=== PATIENT | female | born 1995 ===

== ENCOUNTER 2022-10-08 08:00 | Day surgery (SDC) | payer BC, SELFPAY ==
[2022-10-08] VITALS (7 sets, daily range): BP systolic 130–171; BP diastolic 71–99; PULSE 64–85; RESP 14–18; TEMP 36.6–36.9; O2SAT 17–100; BMI 25.4
--- NOTE | 2022-10-08 09:56 | HPE_ITS ---
Assessment and Plan Assessment and plan (1) Fracture of tibial shaft, right, closed: Status: Acute Assessment and plan: Dariela is a 27-year-old female who is active and was skiing earlier today when she suffered a rotational injury which resulted in a fracture of the right tibia. Given the fracture I recommended operative fixation with an intramedullary nail. I reviewed the technical details of this case. I discussed the risk and benefits. I discussed the potential risk to include bleeding, infection, pain, stiffness, malrotation, malunion, nonunion, hardware prominence, hardware failure, blood clot, need for repeat procedures, knee pain or stiffness. Despite these risk, she elects to proceed. Our plan will be to discharge later today after her procedure. She will be partial weightbearing of the right lower extremity with crutches and a splint. Preoperative cefazolin as well as tranexamic acid will be administered prior to incision. Continue n.p.o. status. LR at 80 cc/h. Morphine IV as needed for pain as well as ketorolac and acetaminophen. History of Present Illness History of Present Illness Chief Complaint: Right Tibia Fracture Narrative: Dariela is a 27-year-old who was skiing yesterday at [place]. The snow was quite soft and her ski got caught in some of the slushy snow causing a rotational injury about the right leg. She felt an immediate pop and went down the ground. She was unable to ambulate. She was taken to the [facility] and diagnosed with a spiral?oblique fracture of the distal tibial diaphysis of the right leg. Orthopedics was consulted at [facility] but there is no beds available. Other tertiary referral centers were called and there is no availability at any location. I was called to help assist in her care. Coordination between staffing and rooms and beds was made such that we were able to take her in the morning for surgery, plan as an outpatient. When she arrived from [facility] she reported some increasing pain about the right leg from the transfer. She denies numbness or tingling. She denies any head trauma. She denies any knee, hip, or thigh pain. She did have some nausea with IV hydromorphone but did well with IV morphine. She also had oral hydromorphone which seem to work well. She denies any sick contacts. She has no shortness of breath or cough. She has has no COVID-19 symptoms nor recent illnesses. 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 Review of Systems All systems reviewed & are unremarkable except as noted in HPI and below PFSH All Active Problems (Updated 10/08/22 @ 10:36 by Quique Orellana MD) Fracture of tibial shaft, right, closed (Acute) Medical History (Updated 10/08/22 @ 10:36 by Quique Orellana MD) ADHD Anxiety Hypertension Social History Smoking/Tobacco Use Status: Current every day Tobacco Type: e-cigarettes Smoking risk assessment performed?: Yes Alcohol Intake: current Alcohol Intake frequency: a few times a month Drug use: Never Do you feel safe at home: Yes Do you feel safe in your relationship?: Yes Meds Allergies and Home Medications Allergies Allergy/AdvReac Type Severity Reaction Status Date / Time azithromycin Allergy Mild Hives Unverified 10/08/22 09:48 Home Medications Medication Instructions Recorded Confirmed Type etonogestrel 0.12 mg-ethinyl vag ring vaginal 10/08/22 History estradiol 0.015 mg/24 hr vaginal ring (NuvaRing) fluoxetine 20 mg capsule (Prozac) 20 mg PO DAILY 10/08/22 10/08/22 History methylphenidate HCl 36 mg 36 mg PO DAILY 10/08/22 10/08/22 History tablet,extended release 24 hr (Concerta) metoprolol tartrate 50 mg tablet 50 mg PO DAILY 10/08/22 10/08/22 History Exam Const General: cooperative, healthy appearing, comfortable and no acute distress Resp Auscultation: clear to auscultation bilaterally Cardio Rate: regular rate Rhythm: regular rhythm Extrem Other: Right lower extremity is in a long-leg splint with side stirrups. Gross skin examination was challenging but did not show any active defects. She was able to actively extend and flex the big toe without significant limitation. Passive range of motion of the toe did not seem to increase pain. Sensation intact light touch over the deep and superficial peroneal nerve and tibial nerve. Capillary refill less than 2 seconds with a palpable DP pulse. No pain to palpation about the proximal tibia or the knee joint. No pain along the thigh. Results Imaging Imaging Studies: AP and lateral of the tibia and fibula was reviewed on the phone. Images were not pushed over as of this time writing the note. Shows a long oblique, spiral fracture of the distal third tibial diaphysis. There is some shortening and some mild malrotation. No extension of the fracture into the ankle joint. No extension proximally.
--- NOTE | 2022-10-08 10:15 | DI.RAD_ITS ---
Exam(s) XR TIB/FIB RT EXAM: XR TIB/FIB RT CLINICAL HISTORY: Right Tibia Fracture. TECHNIQUE: 2D and realtime digital imaging was performed. COMPARISON: No exams were available for comparison FINDINGS: Fluoroscopy was provided for Dr. Orellana in the OR. Hard copy images show placement of an intramedu llary trisha through the tibia for fracture fixation. The alignment is satisfactory. Please see procedure note for details. Fluoro time: 2 minutes 53 secondsseconds RADIATION DOSE DELIVERED: Ka,r=4.4 1 mGy
[2022-10-08] MEDS: MORPHine 2 MG/ML SYR IVP ×2 (10:21→14:07)
[2022-10-08] MEDS: Normal Saline Flush 10 ML SYR IVP (10:21)
[2022-10-08] MEDS: Ondansetron 4 MG/2 ML VIAL IVP (10:22)
--- NOTE | 2022-10-08 10:28 | W.ANESPRE ---
General Info Date of Service Date Performed: 10/08/22 Height: 5 ft 6 in Weight: 71.668 kg Body Mass Index (BMI): 25.4 Surgical Procedure: Operation Date: 10/08/22 11:30 Proposed Procedure Side Surgeon p Tibial Rodding/IM Nailing Right Quique Orellana MD Meds Allergies and Home Medications Allergies Allergy/AdvReac Type Severity Reaction Status Date / Time azithromycin Allergy Mild Hives Unverified 10/08/22 09:48 Home Medication Medication Instructions Recorded acetaminophen 500 mg tablet 1,000 mg PO Q8H PRN pain #90 tabs 10/08/22 aspirin 81 mg tablet,delayed 81 mg PO BID #28 tabs 10/08/22 release celecoxib 200 mg capsule 200 mg PO BID PRN pain #60 caps 10/08/22 etonogestrel 0.12 mg-ethinyl vag ring vaginal 10/08/22 estradiol 0.015 mg/24 hr vaginal ring (NuvaRing) fluoxetine 20 mg capsule (Prozac) 20 mg PO DAILY 10/08/22 hydromorphone 2 mg tablet 2 mg PO Q4H PRN pain #12 tabs 10/08/22 methylphenidate HCl 36 mg 36 mg PO DAILY 10/08/22 tablet,extended release 24 hr (Concerta) metoprolol tartrate 50 mg tablet 50 mg PO DAILY 10/08/22 ondansetron 4 mg disintegrating 4 mg PO Q8H PRN #10 tabs 10/08/22 tablet Current Visit Medications: Current Medications Generic Name Dose Route Start Last Admin Trade Name Freq PRN Reason Stop Dose Admin Hydromorphone HCl 0.5 mg 10/08/22 09:46 Hydromorphone 2 Mg/Ml Syr IVP Q2H PRN PRN Sodium Chloride 500 mls @ 0 mls/hr 10/08/22 09:46 Saline 500ml Bag IV PRN PRN As Directed Cefazolin Sodium/Dextrose 2 gm in 50 mls @ 100 mls/hr 10/08/22 11:00 Ancef Duplex IVPB 10/08/22 16:00 PREOP REECE Tranexamic Acid 1,000 mg/ 60 mls @ 360 mls/hr 10/08/22 11:00 Sodium Chloride IVPB PREOP REECE IV Miscellaneous Supplies 1 each 10/08/22 10:00 Iv Access IV DIRECTED REECE Ketorolac Tromethamine 15 mg 10/08/22 09:46 Ketorolac 15 Mg/Ml Vial IM 10/13/22 09:45 Q6H PRN PRN Morphine Sulfate 2 mg 10/08/22 09:57 10/08/22 10:21 Morphine 2 Mg/Ml Syr IVP 2 mg Q1H PRN PRN Administration Ondansetron HCl 4 mg 10/08/22 09:57 10/08/22 10:22 Ondansetron 4 Mg/2 Ml Vial IVP 4 mg Q6H PRN PRN Administration Oxycodone HCl 0 mg 10/08/22 09:46 Oxycodone 5 Mg Tab PO Q3H PRN PRN Pain Sodium Chloride 0 ml 10/08/22 09:46 10/08/22 10:21 Normal Saline Flush 10 Ml Syr IVP 20 ml PRN PRN Administration PFSH Medical History Medical History ADHD Anxiety Hypertension Tobacco Smoking/Tobacco Use Status: Current every day Tobacco Type: e-cigarettes Alcohol Alcohol Intake: current Alcohol intake frequency: a few times a month Substance Use Substance use: Never Vital Signs and Lab Results Vital Signs Most Recent Vital Signs in EMR: Most Recent Vital Signs Temp Pulse Resp BP Pulse Ox 36.7 C 72 17 171/99 H 17 L 10/08/22 10:12 10/08/22 10:12 10/08/22 10:12 10/08/22 10:12 10/08/22 10:12 Lab Results Blood Type / Crossmatch: No Data to Display Complete Blood Count: No Data to Display Complete Metabolic Panel: No Data to Display Liver Function Panel: No Data to Display Coagulation Panel: No Data to Display Cardiac Panel: No Data to Display Arterial Blood Gas: No Data to Display Venous Blood Gas: No Data to Display Pancreas Panel: No Data to Display Thyroid Panel: No Data to Display Infectious Disease: No Data to Display Blood Cultures: No Data to Display Toxicology Panel: No Data to Display Panel: Urine HCG, Qualitative Negative 10/08/22 10:50 Anesthesia Assessment and Plan Anesthesia History Personal History: No History of Anesthesia Complications Family History: No Family History of Anesthesia Complications Exercise Tolerance Exercise Tolerance: Metabolic Equivalents>4 Pertinent Negatives Pertinent Negatives: No Symptoms of GERD, No Major Cardiovascular Symptoms or Complaints, No Major Pulmonary Symptoms or Complaints (Chronic post nasal gtt) and No History of CVA/TIA Cardiac & Pulmonary Exam Cardiac Exam: Normal S1/S2 Heart Sounds Pulmonary Exam: Clear Bilateral Breath Sounds Implantable Cardiac Device Does patient have a Pacemaker or an ICD?: No Airway Exam Known Difficult Airway: No Mallampati Class: 2 Mouth Opening: Normal (> 3cm) Thyromental Distance: Less than 3 cm Neck Range of Motion: Full ROM Neck Circumference: Normal Teeth Condition: Normal Dentition ASA Classification ASA Score: ASA 2 Emergency Case?: Yes NPO Status NPO Status: NPO Clears >2 hours, Solids >8 hours Status Status: Negative HCG Anesthesia Plan Resuscitation Status: Full Code Anesthesia Technique: General Anesthesia Airway Planned: Endotracheal Tube Monitors Used: Standard Monitors
--- NOTE | 2022-10-08 10:37 | W.PM.DS.N ---
Date of service: 10/08/22 Time of Service: 14:42 DS: Diagnosis Discharge Diagnosis (1) Fracture of tibial shaft, right, closed: Status: Acute Discharge Plan Disposition Patient Disposition: Home Condition: Improving Discharge Details Reason For Visit: Right Tibia Shaft Fracture Admit Date/Time: 10/08/22 09:47 Admit Provider: Quique Orellana Attending Provider: Quique Orellana Primary Care Provider: Liam Fernandez Hospital Course Hospital Course: Dariela was transferred directly from [facility] emergency department for surgical fixation of her right tibial shaft fracture. She was greeted in the medical surgical floor where initial processing was performed. History and physical was performed and consent was obtained. She was taken to the operating room for surgical fixation of a right tibial shaft fracture with an intramedullary nail. She tolerated the procedure well and was taken back to the floor for recovery. She had a demonstration of crutch use and had adequate pain control with oral pain medications. She was voiding spontaneously. She was deemed safe for discharge to home. Home Meds and New Rx's Prescriptions: New celecoxib 200 mg capsule 200 mg PO BID PRN (Reason: pain) Qty: 60 1RF aspirin 81 mg tablet,delayed release (DR/EC) 81 mg PO BID Qty: 28 0RF acetaminophen 500 mg tablet 1,000 mg PO Q8H PRN (Reason: pain) Qty: 90 3RF hydromorphone 2 mg tablet 2 mg PO Q4H PRN (Reason: pain) Qty: 12 0RF ondansetron 4 mg tablet,disintegrating 4 mg PO Q8H PRNQty: 10 0RF Continued metoprolol tartrate 50 mg Tablet 50 mg PO DAILY fluoxetine [Prozac] 20 mg Capsule 20 mg PO DAILY methylphenidate HCl [Concerta] 36 mg Tablet Extended Release 24hr 36 mg PO DAILY etonogestrel-ethinyl estradiol [NuvaRing] 0.12-0.015 mg/24 hr Ring VAGINAL Discharge Instructions Additional Instructions: Tibial Nail Discharge Instructions Activity: For the first few days or week the most important thing to do is to keep the right leg elevated. Try to keep the right foot slightly higher than the knee and the knee slightly higher than the hip. You will have a splint on the right leg for comfort and stability for the first 2 weeks. You may partially weight-bear with crutches. Your right leg, through the splint, may rest on the ground. You may place some weight on the right leg. It is stable for weightbearing. You may wiggle your toes as tolerated. You should work on gentle range of motion of the right knee understand the right knee may be sore with flexion. Dressing: You will have a splint on the lower portion of the leg covered by an Mark wrap as well as an Mark wrap around the knee. These dressings may stay in place until your follow-up in 2 weeks. However, you may choose to remove the Mark wrap from around the knee after 3 days. There will be a dressing underneath this which should stay in place until your follow-up. The splint on the lower portion of the leg should stay in place until your follow-up. If you have any issues with the splint itself, you may rewrap the Mark wrap or call Dr. Orellana or his office to discuss best next steps. Medications: - You should take Tylenol and anti-inflammatory Celebrex as your primary pain control medications. If the Celebrex is too expensive or not covered, please call for another alternative (Advil/Ibuprofen 600mg Q8hr or Naproxen/Aleve [2 Aleve (440mg) twice a day]). Celebrex was chosen due to its anti-inflammatory coverage and less risk of GI upset. - You have been prescribed a stronger pain medication Hydromorphone for breakthrough pain, take as needed as prescribed. - You have also been prescribed a an anti-nausea medication - You will be taking Aspirin 81mg twice a day for DVT prevention for the first 2 weeks unless instructed otherwise. - If you have constipation you should take Colace or Miralax (both [id number]). It takes most people 3-4 days to have a bowel movement. Follow-up: 2 weeks If you have any acute concerns or questions, please do not hesitate to contact the office at [phone]. You may contact Dr. Orellana with any questions after hours through the hospital at [phone] or on his cell phone at [phone]. Stand Alone Forms: Anes.Sugammadex Interaction, Nursing Discharge Form Referrals: Quique Orellana MD [ [facility] STAFF PHYSICIAN] - (Please call Monday to make an Appointment [phone]) Activity:: Partial Weight Bearing RL Equipment/Supplies:: Crutches Diet:: As Tolerated Discharge Orders Discharge Orders: Discharge Order (Routine); Ordered 10/08/22 Ordered By: Quique Orellana DS: Summary Time Spent with Patient providing and/or coordinating discharge services: Less than 30 minutes Status at Discharge Functional status at discharge: uses cane/walker Overall status at discharge: patient is progressing back to baseline Mental Status: mental status grossly normal Speech and Movement: speech and movement normal Mood: congruent mood Affect: normal affect Exam Psych Mental Status: mental status grossly normal Speech and Movement: speech and movement normal Mood: congruent mood Affect: normal affect DS: Data Vitals/I&O Vitals and I&O: Vital Signs Temperature 36.7 C 10/08/22 10:12 Pulse 72 10/08/22 10:12 Pulse Rhythm Regular 10/08/22 10:12 Respiratory Rate 17 10/08/22 10:12 Respiratory Effort Non-Labored 10/08/22 10:12 Respiratory Depth Normal 10/08/22 10:12 Respiratory Pattern Normal 10/08/22 10:12 Blood Pressure 171/99 H 10/08/22 10:12 Pulse Oximetry 17 L 10/08/22 10:12 Oxygen Delivery Method Room Air 10/08/22 10:12 Oxygen Flow Rate 0 10/08/22 10:12 Pain Level 7 10/08/22 10:21 Intake & Output 10/07/22 10/07/22 10/08/22 11:59 23:59 11:59 Weight 71.668 kg PFSH All Active Problems Fracture of tibial shaft, right, closed (Acute) Medical History ADHD Anxiety Hypertension Social History Smoking/Tobacco Use Status: Current every day Tobacco Type: e-cigarettes Smoking risk assessment performed?: Yes Alcohol Intake: current Alcohol Intake frequency: a few times a month Drug use: Never Do you feel safe at home: Yes Do you feel safe in your relationship?: Yes
[2022-10-08 11:11] LABS: HCG Qual (Urine) Negative
[2022-10-08] MEDS: Lactated Ringers 1,000 ML 30 ML IV (11:11)
--- NOTE | 2022-10-08 11:19 | PT.INIE ---
PT Notes Visit Reasons: Right Tibia Shaft Fracture Inpatient Physical Therapy Evaluation Date: 10/08/22 Referring Doctor: Dr. Orellana PT Orders: PT CONSULT: right tibial shaft fx- gait training Precautions: standard, NWB RLE until surgery, then WBAT post-op Patient Profile/Admitting Diagnosis: Patient seen prior to surgical repair of right tibial shaft fx. PT consult requested for pre-op gait training, with IMN planned for later this morning. PMHX: HTN Social History/Home Situation: Patient works as a pharmacist. Lives in a multi-level home with her luke, but able to remain on one floor in the short term. Equipment Owned/DME: crutches issued through [facility] ER yesterday. Patient has with her at time of consult. Subjective: Dariela states that she is very anxious about upcoming surgery and about gait training. She tried crutches last night and had severe nausea and increased pain. Objective: General Observation: Resting in bed, splint to RLE, no additional lines. Mental Status: A&Ox3. Anxious, but pleasant and cooperative throughout. ROM: Right Upper Extremity: WFL Left Upper Extremity: WFL Right Lower Extremity: immobilized knee and ankle Left Lower Extremity: WFL Strength: Right Upper Extremity: grossly 5/5 for all motions Left Upper Extremity: grossly 5/5 for all motions Right Lower Extremity: not assessed Left Lower Extremity: grossly 5/5 Bed Mobility/Transfers: supine-sit: mod A to RLE sit-supine: mod A to RLE sit-stand: supervision stand-sit: supervision Gait: initially declines, however states she would like to get up to commode for urine sample vs using bed english. She was instructed in crutch use for stand pivot transfer, NWB RLE. She completes with SBA and intermittent cues. She was then able to ambulate 5' to gurney with bilat axillary crutches, NWB RLE, and supervision. Reviewed stair management with crutches, with patient instructed in step-to pattern. Luke has also used crutches extensively, and states that he is comfortable assisting. Balance: Static Sitting: normal Dynamic Sitting: normal Static Standing: good Dynamic Standing: fair Informed Consent/Education: Patient instructed in purpose of PT consult and plan of care. Assessment: Patient is a 27 year old female referred to physical therapy services with the diagnosis of right tibial shaft fracture, with planned IMN later this morning. Patient was seen for crutch training prior to surgery, and was able to demonstrate excellent safety and technique. She is appropriate for discharge home with assistance from ance once medically stable. Plan of Care/Treatment Plan: Discharge home with family assistance once medically stable. Patient has her own crutches. No further PT required in acute care setting. DISCHARGE RECOMMENDATIONS: Home with no services TREATMENT CODE/TIME: 10:30 - 10:55 ([id number], gait training) Thania Souza, PT, DPT [facility]
--- NOTE | 2022-10-08 12:50 | ROE_ITS ---
Date of service: 10/08/22 Time of Service: 12:50 Operative Note Operative Note DATE OF PROCEDURE: 10/08/22 PRE-OP DIAGNOSIS: Right Tibia and Fibula Fracture POST-OP DIAGNOSIS: same PROCEDURE: Right Intramedullary Fixation of Tibia Fracture SURGEON: Quique Orellana SEO ASSOCIATE: Efrain Russo ANESTHESIA TYPE: General LMA/ETT Refer to Anesthesia Record ESTIMATED BLOOD LOSS: 200 PATHOLOGY: none sent COMPLICATIONS: Other (Small pointed tip from the drill bit broke off in the tibia and was left in place.) Patient was transported to: PACU Patient's condition: stable Implants: Depuy-Synthes Tibial Nail EX 10mm x 345mm Indications: Dariela is a 27 year old female who presented in transfer after a fall skiing. X-rays confirmed the diagnosis of a fracture of the right tibia and fibula. I reviewed the possible treatment options and given the fracture, I recommended operative fixation. I discussed the technical details of the surgery. I reviewed the risks such as bleeding, infection, pain, stiffness, malunion, nonunion, hardware prominence, hardware faiilure, malrotation, damage to nerves and vessels, blood clot. Despite these risks, she agreed to proceed. Findings: There was a fracture of the tibia which was reduced with traction and internal rotation and external manipulation. This was secured with the IMN and screws. Procedure Description: Dariela was greeted in the preoperative area. Consent was previously reviewed and signed. Once in the operating room, anesthesia was administered. The patient was transferred to the fracture table in the supine position. She was positioned in the supine position with the operative side placed onto a bone foam ramp. All bony prominences were well padded. Arms were placed out to the side, padded, and secured. A single dose of TXA, 1 gram, was then administered IV. Prophylactic antibiotics, Cefazolin 2 grams, was given for prophylactic antibiotics. A timeout was performed for safe surgery. The right leg was prepped with Chloraprep. The leg was draped with U drapes. THe reduction was performed and held in position with a large tenaculum clamp. THis was confirmed reduced in AP and lateral. THen, an incision was then made over the lateral aspect of the knee. This was taken down from the midpoint of patella at his lateral margin following the lateral aspect of the patellar tendon down to the tibial tubercle. The skin was incised sharply. The retinacular tissues were then incised sharply as well. The synovium underlying this was visualized and bluntly dissected off of the anterior, proximal tibia. The patella was mobilized medially allowing access to the central portion of the proximal tibia. A starting position in line with the axis of the tibia, approximate the level of the lateral spine, and at the ventral edge of the proximal tibia was made with the awl. X-ray in both the AP and lateral views were used to confirm this positioning. The awl was then advanced manually into the proximal tibia. This was once again confirmed to be in good position on the AP and lateral views. The ball-tipped guidewire was then inserted through the awl and into the proximal tibia. A bend in the guidewire was placed prior to insertion allowing it to make the turn off the back of the tibia. Reduction was confirmed before advancing the guidewire. The ball-tipped guidewire was then advanced across the fracture site into the distal tibia. It was confirmed to be in appropriate positions on both the AP and the lateral. This was then measured. Using a tissue protector to protect proximal tissues, the tibia was reamed from 8.5 mm to 11.5mm. The 10mm x 345mm Synthes tibial nail EX was opened. The nail was assembled to the aiming arm on the back table and confirmed to be aligned with the trochars for screw insertion. Using manual force the nail was advanced into the tibia. A few light mallet blows advanced the nail through the proximal tibia and down into the final seated position of the distal tibia, approximately at the level of the physeal scar. AP and lateral x-rays of both the knee and the ankle and the entire tibia was performed. They show appropriate positioning of the tibial nail. Starting distally, perfect circles were obtained for each screw. Distal locking screws were placed. These were inserted to be bicortical but prominence was attempted to be minimized as much as possible without compromising stability and screw purchase. There was noted to be a small metallic fragment in the bone that represented the tip of the drill bit which broke off. This was not able to be removed and left in place. Attention was then turned to the proximal aspect. Through the targeting arm, two 5.0 millimeter screws were placed. These were placed without difficulty and once again were ensured to be bicortical. The targeting device was removed. AP and lateral x-rays of were taken of the tibia and fibula. The fracture site is once again investigated and showed to be well aligned as was the overall alignment of the leg. The deep tissues and superficial tissues of the leg and the incision sites were injected with a mixture of 50 cc of ropivacaine, epinephrine, ketorolac and clonidine. The wounds were thoroughly irrigated. The retinaculum of the knee was reapproximated with a #1 Vicryl. The deep tissue was closed with a 2-0 Vicryl followed by running 3-0 Monocryl. The smaller wounds for screw placement were closed with Vicryl and Nylonl in a similar fashion. Mepilex dressing was placed over the wounds. A short posterior leg splint was applied. At the end of the case, all counts were correct. Dariela tolerated the procedure well without known complication and was taken to the PACU for recovery. Physical therapy will start post-operatively,partial weightbearing for the first 2 weeks with assistive devices. Anticoagulation will start within 12-24 hours. 3 doses of post-operative antibiotics for prophylaxis will be administered.
[2022-10-08] MEDS: HYDROmorphone 2 MG/ML SYR IVP ×2 (13:29→13:39)
--- NOTE | 2022-10-08 13:51 | W.ANESPOSTOP ---
Postoperative Evaluation Date, Time and Location Date Performed: 10/08/22 Time Performed: 13:47 Patient Location: PACU Vital Signs Most Recent Imported Vital Signs: Most Recent Vital Signs Temp Pulse Resp BP Pulse Ox 36.6 C 76 17 132/89 97 10/08/22 13:40 10/08/22 13:40 10/08/22 13:40 10/08/22 13:40 10/08/22 13:40 Pain Score Most Recent Pain Score: Most Recent Pain Score Pain Level 6 10/08/22 13:40 Assessment Mental Status: Awake (Alert & Oriented to Patient Baseline) Airway and Respiratory Function: Patent airway with normal (patient baseline) respiratory exam Cardiovascular Function: Hemodynamically Stable Hydration Status: Adequately Hydrated Nausea & Vomiting: No Nausea or Vomiting Pain: Pain is Moderate or Severe Postoperative Pain Management: Pain being addressed with medication Peripheral Nerve Block: Patient did not receive a nerve block
[2022-10-08] MEDS: HYDROmorphone 2 MG TAB PO (16:15)
== END 2022-10-08 17:02 | disposition home or self-care (01) ==
LOC: MS 14:52 → DSU 10-11 11:50 → MS 10-11 11:52 → DSU 10-11 11:52
PROVIDERS: PCP Family Medicine; Visit Provider Student in an Organized Health Care Education/Training Program
PROC: (CPT 27759; principal; 2022-10-08 11:30)
DX: S82.231A Displaced oblique fracture of shaft of right tibia, initial encounter for closed fracture (principal); X50.1XXA Overexertion from prolonged static or awkward postures, initial encounter; Y93.23 Activity, snow (alpine) (downhill) skiing, snowboarding, sledding, tobogganing and snow tubing; Y92.838 Other recreation area as the place of occurrence of the external cause; I10 Essential (primary) hypertension; F41.9 Anxiety disorder, unspecified; F90.9 Attention-deficit hyperactivity disorder, unspecified type; F17.290 Nicotine dependence, other tobacco product, uncomplicated; Z79.899 Other long term (current) drug therapy
CPT/HCPCS: 27759; 96361; 96374; 96375; 97116; 73590; 81025; J0690; J1100; J1170; J1885; J2250; J2270; J2405; J2704; J3010

== ENCOUNTER 2022-10-21 08:29 | Outpatient (CLI) | payer BC, SELFPAY ==
--- NOTE | 2022-10-21 08:15 | DI.RAD_ITS ---
Exam(s) XR TIB/FIB RT EXAM: XR TIB/FIB RT CLINICAL HISTORY: 1ST POST OP S/P IM FIXATION TIB. TECHNIQUE: 2D digital imaging was performed. Two images were obtained. COMPARISON: CR XR LOWER LEG RIGHT from 10/07/2022 CR XR LOWER LEG RIGHT from 10/07/2022 XA XR TIB/FIB RT from 10/08/2022 FINDINGS: BONES: There are stable post operative changes present. There is a stable minimally displaced proxim al fibular fracture. There has been no change in alignment of the tibial fracture. No new fractures identified. JOINTS: The joint spaces are well maintained. SOFT TISSUE: Normal. IMPRESSION: Stable postoperative changes. DATA REPOSITORY: RADIATION DOSE DELIVERED:
== END 2022-10-21 08:30 | disposition home or self-care (01) ==
LOC: DIORS 08:29
PROVIDERS: PCP Family Medicine; Referring Provider Family Medicine; Visit Provider Student in an Organized Health Care Education/Training Program
DX: S82.201D Unspecified fracture of shaft of right tibia, subsequent encounter for closed fracture with routine healing (principal); X58.XXXD Exposure to other specified factors, subsequent encounter
CPT/HCPCS: 73590

== ENCOUNTER 2022-11-18 09:48 | Outpatient (CLI) | payer BC, SELFPAY ==
--- NOTE | 2022-11-18 09:15 | DI.RAD_ITS ---
Exam(s) XR TIB/FIB RT EXAM: XR TIB/FIB RT CLINICAL HISTORY: S/P IM FIXATION TIB. TECHNIQUE: 2D digital imaging was performed. Two images were obtained. AP, lateral and oblique view s were obtained. COMPARISON: CR XR TIB/FIB RT from 10/21/2022 FINDINGS: BONES: There are stable post operative changes present. No new fracture or dislocation. JOINTS: The joint spaces are well maintained. SOFT TISSUE: Normal. IMPRESSION: Stable postoperative changes. DATA REPOSITORY: RADIATION DOSE DELIVERED:
== END 2022-11-18 09:49 | disposition home or self-care (01) ==
LOC: DIORS 09:48
PROVIDERS: PCP Family Medicine; Visit Provider Student in an Organized Health Care Education/Training Program
DX: S82.231D Displaced oblique fracture of shaft of right tibia, subsequent encounter for closed fracture with routine healing (principal); X58.XXXD Exposure to other specified factors, subsequent encounter
CPT/HCPCS: 73590

== ENCOUNTER 2022-12-30 10:42 | Outpatient (CLI) | payer BC, SELFPAY ==
--- NOTE | 2022-12-30 09:30 | DI.RAD_ITS ---
Exam(s) XR TIB/FIB RT EXAM: XR TIB/FIB RT CLINICAL HISTORY: f/u R IMN tib-fib. TECHNIQUE: 2D digital imaging was performed. Two images were obtained. AP and lateral views were ob tained. COMPARISON: CR XR TIB/FIB RT from 10/21/2022 CR XR TIB/FIB RT from 11/18/2022 FINDINGS: BONES: There are stable post operative changes present. There is callus formation about both the fib ular and tibial fractures consistent with interval healing. No new fracture or dislocation. JOINTS: The joint spaces are well maintained. No joint effusion is present. SOFT TISSUE: Normal. IMPRESSION: Healing tibial and fibular fractures. DATA REPOSITORY: RADIATION DOSE DELIVERED:
== END 2022-12-30 10:43 | disposition home or self-care (01) ==
LOC: DIORS 10:42
PROVIDERS: PCP Family Medicine; Referring Provider Family Medicine; Visit Provider Student in an Organized Health Care Education/Training Program
DX: S82.231D Displaced oblique fracture of shaft of right tibia, subsequent encounter for closed fracture with routine healing (principal); X58.XXXD Exposure to other specified factors, subsequent encounter; S82.491D Other fracture of shaft of right fibula, subsequent encounter for closed fracture with routine healing
CPT/HCPCS: 73590

== ENCOUNTER 2023-02-10 09:40 | Outpatient (CLI) | payer BC, SELFPAY ==
--- NOTE | 2023-02-10 09:25 | DI.RAD_ITS ---
Exam(s) XR TIB/FIB RT EXAM: XR TIB/FIB RT CLINICAL HISTORY: F/U R TIB FX. TECHNIQUE: 2D digital imaging was performed. COMPARISON: CR XR TIB/FIB RT from 12/30/2022 FINDINGS: Two views: Again noted is a long intramedullary trisha transfixing the fracture in the distal half of the tibia. F racture line still evident but without displacement. No additional fractures identified. No radiogr aphic evidence of osteomyelitis. Healing spiral fracture in the proximal half of the fibula is also again noted, nondisplaced. IMPRESSION: Stable appearance. DATA REPOSITORY: RADIATION DOSE DELIVERED:
== END 2023-02-10 09:41 | disposition home or self-care (01) ==
LOC: DIORS 09:41
PROVIDERS: PCP Family Medicine; Referring Provider Family Medicine; Visit Provider Student in an Organized Health Care Education/Training Program
DX: S82.201A Unspecified fracture of shaft of right tibia, initial encounter for closed fracture (principal)
CPT/HCPCS: 73590